=== PATIENT | female | born 1995 | race African-American/Black ===

== ENCOUNTER 2020-05-06 07:07 | Emergency (ER) | payer MEDICAID ==
[~2020-05-06] VITALS: Ht 162.6 cm; Wt 65.9 kg
[2020-05-06 07:15] VITALS: Ht 162.6 cm; Wt 65.9 kg
[2020-05-06] MEDS ORDERED: CLEOCIN HCL300 MG PO (07:38)
[2020-05-06] MEDS ORDERED: HYDROCODON-ACE1 EAC7 PO (07:38)
[2020-05-06 07:45] VITALS: BP 122/62
== END 2020-05-06 07:46 | disposition home or self-care (01) ==
LOC: D.ER 07:07
DX: K04.7 Periapical abscess without sinus (principal); S02.5XXA Fracture of tooth (traumatic), initial encounter for closed fracture; X58.XXXA Exposure to other specified factors, initial encounter; K08.89 Other specified disorders of teeth and supporting structures